=== PATIENT | female | born 1955 | race Hispanic/Latino ===

== ENCOUNTER 2019-07-20 10:45 | Emergency (ER) | payer BC ==
[~2019-07-20] VITALS: Ht 162.6 cm; Wt 77.1 kg
[2019-07-20] MEDS: HYDROCODONE/APAP 5MG-325MG TAB PO ONE (11:22)
--- NOTE | 2019-07-20 11:22 | Diagnostic Imaging Report ---
Exam: Left knee 3 views History: pain Comparison: None. Findings: No fracture or malalignment. Tricompartmental knee degenerative arthrosis. Small joint effusion. Extensor enthesophyte. Impression: No acute osseous abnormality Mild degenerative arthrosis of the knee. Signed by: Dr. Ronnell Haywood M.D. on 07/20/2019 11:20 AM
[2019-07-20 12:08] VITALS: BP 120/73
== END 2019-07-20 12:37 | disposition home or self-care (01) ==
LOC: ER 10:45
DX: M25.562 Pain in left knee (principal); M25.462 Effusion, left knee; X50.1XXA Overexertion from prolonged static or awkward postures, initial encounter; Y93.01 Activity, walking, marching and hiking; E11.9 Type 2 diabetes mellitus without complications; E78.5 Hyperlipidemia, unspecified; F32.9 Major depressive disorder, single episode, unspecified
CPT/HCPCS: 99284

== ENCOUNTER 2019-11-16 11:55 | Emergency (ER) | payer BC ==
[~2019-11-16] VITALS: Ht 162.6 cm; Wt 77.1 kg
--- OUTSIDE RECORDS SUMMARY | 2019-11-16 11:58 | XMS REPORT ---
Author Author [facility] t Organization [facility] Address [address] [place] [address] Phone Unavailable Care Team Providers Care Business Education Professor Name Role Phone ALLYN CARLISLE MD PCP RADHAMES EVANS Unavailable Payers Payer Name Policy Type Policy Number Effective Date Expiration Date [employer] Ppo [id number] 2013 00:00:00 [facility] Problems Condition Name Condition Details Condition Category Status Onset Date Resolution Date Last Treatment Date Treating Clinician Comments Source Bilateral hearing loss Bilateral hearing loss Disease Active 2017-05-29 00:00:00 Flo george Allergies, Adverse Reactions, Alerts Allergy Name Allergy Type Status Severity Reaction(s) Onset Date Inacti ve Date Treating Clinician Comments Source Penicillin Allergy to Substance Active 2019-07-20 00:00:00 [facility] Penicillins Propensity to adverse reactions to drug Active 2017-05-29 00:00:00 Flo mendes Social History Social Habit Start Date Stop Date Quantity Comments Source Sex Assigned At Shadi bocanegra Raghu Alcohol intake 2017-05-29 00:00:00 2017-05-29 00:00:00 Current non-drinker of alcohol (finding) Flo Krishnamurthy Smoking Status Start Date Stop Date Source Never smoker Flo mendes Medications Ordered Medication Name Filled Medication Name Start Date Stop Da te Current Medication? Ordering Clinician Indication Dosage Frequency Signature (SIG) Comments Components Source PARoxetine mesylate (PEXEVA) 40 MG tablet 2017-05-29 14:51:53 Yes 40mg QD Take 40 mg by mouth every morning. Flo Krishnamurthy atorvastatin (LIPITOR) 10 MG tablet 2017-05-29 14:51:53 Yes 10mg QD Take 10 mg by mouth daily. Flo Krishnamurthy metFORMIN (GLUCOPHAGE) 1,000 mg tablet 2017-05-29 14:51:53 Yes 1000mg Q.5D Take 1,000 mg by mouth 2 (two) times a day with meals. Flo Krishnamurthy glimepiride (AMARYL) 2 MG tablet 2017-05-29 14:51:53 Yes 2mg QD Take 2 mg by mouth daily before breakfast. Daniel Krishnamurthy pantoprazole (PROTONIX) 40 MG EC tablet 2017-05-29 14:51:53 Yes 40mg QD Take 40 mg by mouth daily. Flo sneed famotidine (PEPCID) 20 MG tablet 2017-05-29 14:51:53 Yes 20mg Q.5D Take 20 mg by mouth 2 (two) times a day. Daniel Krishnamurthy Procedures This patient has no known procedures. Plan of Care Planned Activity Planned Date Details Comments Source Future Scheduled Test 2020-01-18 00:00:00 INFLUENZA VACCINE [code = INFLUENZA VACCINE] [facility] Scheduled Test 2005 00:00:00 BREAST CANCER SCRE ENING [code = BREAST CANCER SCREENING] [facility] Scheduled Test 2005 00:00:00 COLONOSCOPY SCREEN ING [code = COLONOSCOPY SCREENING] [facility] Scheduled Test 2005 00:00:00 SHINGLES VACCINES (#1) [code = SHINGLES VACCINES (#1)] [facility] Scheduled Test 1976-01-28 00:00:00 Screening for brian gnant neoplasm of cervix (procedure) [code = 296402200] [facility] Encounters Start Date/Time End Date/Time Encounter Type Admission Type [facility] Facility Care Department Encounter ID Source 2019-07-20 10:45:00 2019-07-20 12:37:00 Departed Emergency Room 1 RADHAMES EVANS [facility] [id number] [facility] Results Test Description Test Time Test Comments Results Result Comments Source KNEE LEFT THREE VIEWS 2019-07-20 11:19:00 [facility] [address] [place], [place] [address] Patient Name: FELIX EDWARDS MR #: [id number] : 1955 Age/Sex: 64/F Req #: [id number] Adm Physician: Ordered by: RADHAMES EVANS DO Report #: [id number] Location: ER Room/Bed: Procedure: [id number] DX/KNEE LEFT THREE VIEWS Exam Date: 07/20/19 Exam Time: 1100 REPORT STATUS: Signed Exam: Left knee 3 views History: pain Comparison: None. Findings: No fracture or malalignment. Tricompartmental knee degenerative arthrosis. Small joint effusion. Extensor enthesophyte. Impression: No acute osseous abnormality Mild degenerative arthrosis of the knee. Signed by: Dr. Cathy Fine M.D. on 07/20/2019 11:20 AM Dictated By: CATHY FINE MD 1120 Transcribed By: DANIEL on 07/20/19 1120 COPY TO: RADHAMES EVANS DO
--- OUTSIDE RECORDS SUMMARY | 2019-11-16 11:58 | XMS REPORT | Clinical Summary ---
Author Author [facility] Organization [facility] Address Unknown Phone Unavailable Care Team Providers Care Rehab Office Coordinator Name Role Phone David Pearson MD PCP Allergies Comments Active Allergy Reactions Severity Noted Date Penicillins 05/29/2017 Medications End Date Status Medication Sig Dispensed Refills Start Date Active PARoxetine mesylate Take 40 mg by 0 (PEXEVA) 40 MG tablet mouth every morning. Active atorvastatin (LIPITOR) 10 Take 10 mg by 0 MG tablet mouth daily. Active metFORMIN (GLUCOPHAGE) Take 1,000 mg 0 1,000 mg tablet by mouth 2 (two) times a day with meals. Active glimepiride (AMARYL) 2 MG Take 2 mg by 0 tablet mouth daily before breakfast. Active pantoprazole (PROTONIX) Take 40 mg by 0 40 MG EC tablet mouth daily. Active famotidine (PEPCID) 20 MG Take 20 mg by 0 tablet mouth 2 (two) times a day. Active Problems Problem Noted Date Bilateral hearing loss 05/29/2017 Social History Date Tobacco Use Types Packs/Day Years Used Never Smoker Smokeless Tobacco: Never Used Drinks/Week oz/Week Comments Alcohol Use No Sex Assigned at Date Recorded Not on file Industry Job Start Date Occupation Not on file Not on file Not on file Travel End Travel History Travel Start No recent travel history available. Last Filed Vital Signs Not on file Plan of Treatment Health Maintenance Due Date Last Done Comments CERVICAL CANCER SCREENING 01/28/1976 BREAST CANCER SCREENING 2005 COLONOSCOPY SCREENING 2005 SHINGLES VACCINES (#1) 2005 INFLUENZA VACCINE 01/18/2020 Results Not on fileafter 11/15/2018 Insurance Type Payer Benefit Subscriber ID Effective Phone Address Plan / Dates Group PPO BCBS BCBS xxxxxxxxxxxx 2015-P CHOICE resent PPO/NII VARELA PPO [id number] Advance Directives For more information, please contact: [phone] Patient Health Data Analyst Explanation Type Date Recorded Advance Directives, Living Will and Medical Power of Human Resources Operations Coordinator
[2019-11-16] MEDS ORDERED: SODIUM CHLORIDE 0.9% 1000ML 1,000 ML IV STA (12:20)
[2019-11-16] MEDS ORDERED: MORPHINE SULFATE 2 MG/ML SYR 1ML IV NR (12:30)
[2019-11-16] MEDS ORDERED: ONDANSETRON HCL INJ 2MG/ML 2ML 2 MG/ML VIAL IV NR (12:30)
[2019-11-16 12:38] LABS: BASOPHILS # (AUTO) 0.1 (0.0-0.1); BASOPHILS % 1.4 % (0.0-1.0); EOSINOPHILS # (AUTO) 0.3 (0.0-0.4); EOSINOPHILS % 5.3 % (0.0-6.0); HEMATOCRIT 39.5 % (34.2-44.1); HEMOGLOBIN 13.1 g/dL (12.0-16.0); LYMPHOCYTES # (AUTO) 2.1 (1.0-3.2); LYMPHOCYTES % 36.3 % (18.0-39.1); MEAN CORPUSCULAR HEMOGLOBIN 29.2 pg (28-32); MEAN CORPUSCULAR HGB CONC 33.2 g/dL (31-35); MEAN CORPUSCULAR VOLUME 88.2 fL (81-99); MONOCYTES # (AUTO) 0.4 (0.2-0.8); MONOCYTES % 6.8 % (4.4-11.3); NEUTROPHILS # (AUTO) 2.9 (2.1-6.9); NEUTROPHILS % 49.9 % (38.7-80.0); PLATELET COUNT 273 x10e3/uL (140-360); RED BLOOD COUNT 4.48 x10e6/uL (3.6-5.1); RED CELL DISTRIBUTION WIDTH 12.7 % (11.7-14.4)
--- NOTE | 2019-11-16 12:47 | NUR ---
rec'd pt in rm 4 with c/o r l quad pain
[2019-11-16 12:48] LABS: INR 0.81; PROTHROMBIN TIME 11.7 seconds (11.9-14.5)
[2019-11-16 12:49] LABS: PARTIAL THROMBOPLASTIN TIME 25.4 seconds (23.8-35.5)
[2019-11-16 12:58] LABS: ALANINE AMINOTRANSFERASE 32 IU/L (0-55); ALBUMIN 3.8 g/dL (3.5-5.0); ALBUMIN/GLOBULIN RATIO 1.1 (0.8-2.0); ALKALINE PHOSPHATASE 81 IU/L (40-150); ANION GAP 14.4 mmol/L (8-16); BLOOD UREA NITROGEN 9 mg/dL (7-26); BUN/CREATININE RATIO 12 (6-25); CALCIUM 9.2 mg/dL (8.4-10.2); CARBON DIOXIDE 25 mmol/L (22-29); CHLORIDE 103 mmol/L (98-107); CREATINE KINASE 54 IU/L (29-168); CREATININE, SERUM 0.76 mg/dL (0.57-1.11); EST GLOMERULAR FILTRATION RATE > 60 ML/MIN (60-); GLUCOSE 201 mg/dL (74-118); LIPASE 62 U/L (8-78); POTASSIUM 4.4 mmol/L (3.5-5.1); SODIUM 138 mmol/L (136-145)
[2019-11-16 13:14] LABS: CLARITY,URINE CLEAR (CLEAR); COLOR,URINE YELLOW (YELLOW)
[2019-11-16 13:15] LABS: LEUKOCYTE ESTERASE ,URINE NEGATIVE (NEGATIVE); NITRITE,URINE NEGATIVE (NEGATIVE); PROTEIN,URINE DIPSTICK NEGATIVE (NEGATIVE)
[2019-11-16 13:16] LABS: BILIRUBIN,URINE NEGATIVE (NEGATIVE); KETONES,URINE NEGATIVE (NEGATIVE); URINE UROBILINOGEN 0.2 mg/dL (0.2 - 1)
[2019-11-16 13:28] LABS: BACTERIA,URINE MANY /HPF; EPITHELIAL CELLS,URINE MANY /LPF; RBC,URINE 0-5 /HPF (0-5)
--- NOTE | 2019-11-16 13:44 | Emergency Department Note ---
History of Present Illnes History of Present Illness Chief Complaint: General Medicine Complaints History of Present Illness This is a 64 year old female . Chief Complaint Comment here for numbness in in her back and right sided pelvic area for a wee and states that she feels a lump in her right pelvic area. no other symptoms reported, denies, fever, nausea or vomiting. no diarrhea. Historian: Patient Arrival Mode: Car Onset (how long ago): week(s) (1 wk) Location: right abd pain Severity: mild Onset quality: gradual Duration (how long): week(s) (1 wk) Timing of current episode: constant Progression: unchanged Context: recent illness, recent surgery, recent immobilization, recent travel, trauma/injury, new medications, hx of DVT/PE, non-compliance w/ medications, other Relieving factors: none Exacerbating factors: none Treatments prior to arrival: none (RADHAMES JAMIL NP) Past Medical/Family History Physician Review I have reviewed the patient's past medical and family history. Any updates have been documented here. (RADHAMES JAMIL NP) Past Medical History Recent Fever: No Clinical Suspicion of Infectio: No New/Unexplained Change in Ment: No Past Medical History: Diabetes, Depression, Hyperlipedemia Past Surgical History: (RADHAMES JAMIL NP) Social History Smoking Cessation: Never Smoker Counseling Performed: No Alcohol Use: None Any Illegal Drug Use: No TB Exposure/Symptoms: No Physically hurt or threatened: No (RADHAMES JAMIL NP) Other Last Tetanus: utd Any Pre-Existing Lines (PICC,: No Is patient up to date on immun: Yes Last Flu: UTD Last Pneumovax: UTD (RADHAMES JAMIL NP) Review of Systems Review of Systems Constitutional: no symptoms EENTM: no symptoms Cardiovascular: no symptoms Respiratory: no symptoms Gastrointestinal: abdominal pain (right side abd pain ) Genitourinary: no symptoms Musculoskeletal: no symptoms Neurological: no symptoms Psychological: no symptoms Endocrine: no symptoms Hematological/Lymphatic: no symptoms Review of other systems All other systems reviewed and negative. (RADHAMES JAMIL NP) Physical Exam Related Data Allergies: Coded Allergies: Penicillins (Verified Allergy, Unknown, 07/20/19) Triage Vital Signs Vital Signs Date Time Temp Pulse Resp B/P (MAP) Pulse Ox O2 Delivery O2 Flow Rate FiO2 11/16/19 12:14 98.6 81 16 147/90 97 Vital signs reviewed: Yes (RADHAMES JAMIL IMAGING ACCOUNT MANAGER) Physical Exam CONSTITUTIONAL Constitutional: well-developed, well-nourished HENT HENT: normocephalic, atraumatic, oropharynx clear/moist, nose normal HENT L/R: left ext ear normal, right ext ear normal EYES Eyes: PERRL, conjunctivae normal NECK Neck: ROM normal PULMONARY Pulmonary: effort normal, breath sounds normal CARDIOVASCULAR Cardiovascular: regular rhythm, heart sounds normal, capillary refill normal, normal rate GASTROINTESTINAL Abdominal: soft; nontender (noted ttp on exam r side abd ); bowel sounds normal GENITOURINARY Genitourinary: exam deferred SKIN Skin: warm, dry MUSCULOSKELETAL Musculoskeletal: ROM normal NEUROLOGICAL Neurological: alert, oriented x 3, no gross motor or sensory deficits PSYCHOLOGICAL Psychological: mood/affect normal, judgement normal (RADHAMES JAMIL IMAGING ACCOUNT MANAGER) Results Laboratory Result Diagram: 11/16/19 1228 11/16/19 1228 Laboratory Laboratory Tests Test 11/16/19 12:28 White Blood Count 5.84 x10e3/uL (4.8-10.8) Red Blood Count 4.48 x10e6/uL (3.6-5.1) Hemoglobin 13.1 g/dL (12.0-16.0) Hematocrit 39.5 % (34.2-44.1) Mean Corpuscular Volume 88.2 fL (81-99) Mean Corpuscular Hemoglobin 29.2 pg (28-32) Mean Corpuscular Hemoglobin Concent 33.2 g/dL (31-35) Red Cell Distribution Width 12.7 % (11.7-14.4) Platelet Count 273 x10e3/uL (140-360) Neutrophils (%) (Auto) 49.9 % (38.7-80.0) Lymphocytes (%) (Auto) 36.3 % (18.0-39.1) Monocytes (%) (Auto) 6.8 % (4.4-11.3) Eosinophils (%) (Auto) 5.3 % (0.0-6.0) Basophils (%) (Auto) 1.4 % (0.0-1.0) Neutrophils # (Auto) 2.9 (2.1-6.9) Lymphocytes # (Auto) 2.1 (1.0-3.2) Monocytes # (Auto) 0.4 (0.2-0.8) Eosinophils # (Auto) 0.3 (0.0-0.4) Basophils # (Auto) 0.1 (0.0-0.1) Absolute Immature Granulocyte (auto 0.02 x10e3/uL (0-0.1) Prothrombin Time 11.7 seconds (11.9-14.5) Prothromb Time International Ratio 0.81 Activated Partial Thromboplast Time 25.4 seconds (23.8-35.5) Urine Color Yellow (YELLOW) Urine Clarity Clear (CLEAR) Urine pH 6 (5 - 7) Urine Specific Clark 1.020 (1.010-1.025) Urine Protein Negative (NEGATIVE) Urine Glucose (UA) 2+ (NEGATIVE) Urine Ketones Negative (NEGATIVE) Urine Blood Negative (NEGATIVE) Urine Nitrite Negative (NEGATIVE) Urine Bilirubin Negative (NEGATIVE) Urine Urobilinogen 0.2 mg/dL (0.2 - 1) Urine Leukocyte Esterase Negative (NEGATIVE) Urine RBC 0-5 /HPF (0-5) Urine WBC 6-10 /HPF (0-5) Urine Epithelial Cells Many /LPF (NONE) Urine Bacteria Many /HPF (NONE) Sodium Level 138 mmol/L (136-145) Potassium Level 4.4 mmol/L (3.5-5.1) Chloride Level 103 mmol/L (98-107) Carbon Dioxide Level 25 mmol/L (22-29) Anion Gap 14.4 mmol/L (8-16) Blood Urea Nitrogen 9 mg/dL (7-26) Creatinine 0.76 mg/dL (0.57-1.11) Estimat Glomerular Filtration Rate > 60 ML/MIN (60-) BUN/Creatinine Ratio 12 (6-25) Glucose Level 201 mg/dL (74-118) Calcium Level 9.2 mg/dL (8.4-10.2) Total Bilirubin 0.3 mg/dL (0.2-1.2) Aspartate Amino Transf (AST/SGOT) 24 IU/L (5-34) Alanine Aminotransferase (ALT/SGPT) 32 IU/L (0-55) Alkaline Phosphatase 81 IU/L (40-150) Creatine Kinase 54 IU/L (29-168) Creatine Kinase MB 1.10 ng/mL (0-5.0) Troponin I 0.011 ng/mL (0-0.300) B-Type Natriuretic Peptide 39.2 pg/mL (0-100) Total Protein 7.4 g/dL (6.5-8.1) Albumin 3.8 g/dL (3.5-5.0) Globulin 3.6 g/dL (2.3-3.5) Albumin/Globulin Ratio 1.1 (0.8-2.0) Lipase 62 U/L (8-78) Laboratory Tests Test 11/16/19 12:28 White Blood Count 5.84 x10e3/uL (4.8-10.8) Red Blood Count 4.48 x10e6/uL (3.6-5.1) Hemoglobin 13.1 g/dL (12.0-16.0) Hematocrit 39.5 % (34.2-44.1) Mean Corpuscular Volume 88.2 fL (81-99) Mean Corpuscular Hemoglobin 29.2 pg (28-32) Mean Corpuscular Hemoglobin Concent 33.2 g/dL (31-35) Red Cell Distribution Width 12.7 % (11.7-14.4) Platelet Count 273 x10e3/uL (140-360) Neutrophils (%) (Auto) 49.9 % (38.7-80.0) Lymphocytes (%) (Auto) 36.3 % (18.0-39.1) Monocytes (%) (Auto) 6.8 % (4.4-11.3) Eosinophils (%) (Auto) 5.3 % (0.0-6.0) Basophils (%) (Auto) 1.4 % (0.0-1.0) Neutrophils # (Auto) 2.9 (2.1-6.9) Lymphocytes # (Auto) 2.1 (1.0-3.2) Monocytes # (Auto) 0.4 (0.2-0.8) Eosinophils # (Auto) 0.3 (0.0-0.4) Basophils # (Auto) 0.1 (0.0-0.1) Absolute Immature Granulocyte (auto 0.02 x10e3/uL (0-0.1) Prothrombin Time 11.7 seconds (11.9-14.5) Prothromb Time International Ratio 0.81 Activated Partial Thromboplast Time 25.4 seconds (23.8-35.5) Urine Color Yellow (YELLOW) Urine Clarity Clear (CLEAR) Urine pH 6 (5 - 7) Urine Specific Clark 1.020 (1.010-1.025) Urine Protein Negative (NEGATIVE) Urine Glucose (UA) 2+ (NEGATIVE) Urine Ketones Negative (NEGATIVE) Urine Blood Negative (NEGATIVE) Urine Nitrite Negative (NEGATIVE) Urine Bilirubin Negative (NEGATIVE) Urine Urobilinogen 0.2 mg/dL (0.2 - 1) Urine Leukocyte Esterase Negative (NEGATIVE) Urine RBC 0-5 /HPF (0-5) Urine WBC 6-10 /HPF (0-5) Urine Epithelial Cells Many /LPF (NONE) Urine Bacteria Many /HPF (NONE) Sodium Level 138 mmol/L (136-145) Potassium Level 4.4 mmol/L (3.5-5.1) Chloride Level 103 mmol/L (98-107) Carbon Dioxide Level 25 mmol/L (22-29) Anion Gap 14.4 mmol/L (8-16) Blood Urea Nitrogen 9 mg/dL (7-26) Creatinine 0.76 mg/dL (0.57-1.11) Estimat Glomerular Filtration Rate > 60 ML/MIN (60-) BUN/Creatinine Ratio 12 (6-25) Glucose Level 201 mg/dL (74-118) Calcium Level 9.2 mg/dL (8.4-10.2) Total Bilirubin 0.3 mg/dL (0.2-1.2) Aspartate Amino Transf (AST/SGOT) 24 IU/L (5-34) Alanine Aminotransferase (ALT/SGPT) 32 IU/L (0-55) Alkaline Phosphatase 81 IU/L (40-150) Creatine Kinase 54 IU/L (29-168) Creatine Kinase MB 1.10 ng/mL (0-5.0) Troponin I 0.011 ng/mL (0-0.300) B-Type Natriuretic Peptide 39.2 pg/mL (0-100) Total Protein 7.4 g/dL (6.5-8.1) Albumin 3.8 g/dL (3.5-5.0) Globulin 3.6 g/dL (2.3-3.5) Albumin/Globulin Ratio 1.1 (0.8-2.0) Lipase 62 U/L (8-78) Laboratory Tests Test 11/16/19 12:28 White Blood Count 5.84 x10e3/uL (4.8-10.8) Red Blood Count 4.48 x10e6/uL (3.6-5.1) Hemoglobin 13.1 g/dL (12.0-16.0) Hematocrit 39.5 % (34.2-44.1) Mean Corpuscular Volume 88.2 fL (81-99) Mean Corpuscular Hemoglobin 29.2 pg (28-32) Mean Corpuscular Hemoglobin Concent 33.2 g/dL (31-35) Red Cell Distribution Width 12.7 % (11.7-14.4) Platelet Count 273 x10e3/uL (140-360) Neutrophils (%) (Auto) 49.9 % (38.7-80.0) Lymphocytes (%) (Auto) 36.3 % (18.0-39.1) Monocytes (%) (Auto) 6.8 % (4.4-11.3) Eosinophils (%) (Auto) 5.3 % (0.0-6.0) Basophils (%) (Auto) 1.4 % (0.0-1.0) Neutrophils # (Auto) 2.9 (2.1-6.9) Lymphocytes # (Auto) 2.1 (1.0-3.2) Monocytes # (Auto) 0.4 (0.2-0.8) Eosinophils # (Auto) 0.3 (0.0-0.4) Basophils # (Auto) 0.1 (0.0-0.1) Absolute Immature Granulocyte (auto 0.02 x10e3/uL (0-0.1) Prothrombin Time 11.7 seconds (11.9-14.5) Prothromb Time International Ratio 0.81 Activated Partial Thromboplast Time 25.4 seconds (23.8-35.5) Urine Color Yellow (YELLOW) Urine Clarity Clear (CLEAR) Urine pH 6 (5 - 7) Urine Specific Clark 1.020 (1.010-1.025) Urine Protein Negative (NEGATIVE) Urine Glucose (UA) 2+ (NEGATIVE) Urine Ketones Negative (NEGATIVE) Urine Blood Negative (NEGATIVE) Urine Nitrite Negative (NEGATIVE) Urine Bilirubin Negative (NEGATIVE) Urine Urobilinogen 0.2 mg/dL (0.2 - 1) Urine Leukocyte Esterase Negative (NEGATIVE) Urine RBC 0-5 /HPF (0-5) Urine WBC 6-10 /HPF (0-5) Urine Epithelial Cells Many /LPF (NONE) Urine Bacteria Many /HPF (NONE) Sodium Level 138 mmol/L (136-145) Potassium Level 4.4 mmol/L (3.5-5.1) Chloride Level 103 mmol/L (98-107) Carbon Dioxide Level 25 mmol/L (22-29) Anion Gap 14.4 mmol/L (8-16) Blood Urea Nitrogen 9 mg/dL (7-26) Creatinine 0.76 mg/dL (0.57-1.11) Estimat Glomerular Filtration Rate > 60 ML/MIN (60-) BUN/Creatinine Ratio 12 (6-25) Glucose Level 201 mg/dL (74-118) Calcium Level 9.2 mg/dL (8.4-10.2) Total Bilirubin 0.3 mg/dL (0.2-1.2) Aspartate Amino Transf (AST/SGOT) 24 IU/L (5-34) Alanine Aminotransferase (ALT/SGPT) 32 IU/L (0-55) Alkaline Phosphatase 81 IU/L (40-150) Creatine Kinase 54 IU/L (29-168) Creatine Kinase MB 1.10 ng/mL (0-5.0) Troponin I 0.011 ng/mL (0-0.300) B-Type Natriuretic Peptide 39.2 pg/mL (0-100) Total Protein 7.4 g/dL (6.5-8.1) Albumin 3.8 g/dL (3.5-5.0) Globulin 3.6 g/dL (2.3-3.5) Albumin/Globulin Ratio 1.1 (0.8-2.0) Lipase 62 U/L (8-78) Lab results reviewed: Yes (RADHAMES JAMIL NP) Imaging Impressions CONCLUSION: Normal appendix. Diffuse hepatic steatosis. Distended bladder. Multivessel scattered coronary atherosclerosis. Signed by: Dr. Shen Orozco MD on 11/16/2019 2:21 PM Dictated By: SHEN OROZCO MD 20 Transcribed By: DANIEL on 11/16/191420 (RADHAMES JAMIL NP) Critical Care Time Subsequent provider I assumed direction of critical care for this patient from another provider of my specialty. (RADHAMES JAMIL NP) Assessment & Plan Reassessment Reassessment time: 15:50 Reassessment Chart scribed for Dr Anegl 64y f presented to ed c/o r side abd pain x 1 wk - denies n/v/d dysuria hematuria frequency - Dr Angel in eval pt status lab CT ordered pt medicated /w morphine zofran (RADHAMES JAMIL NP) Assessment & Plan Final Impression: (1) UNSPECIFIED ABDOMINAL PAIN Assessment & Plan Dr Angel in re eval pt status discussed lab ct results plan of care and f/u instructions plan: 1. follow up with your doctor in 1-2 days without fail 2. return to ed as needed 3. tylenol and motrin as needed 4. rx bentyl (RADHAMES JAMIL NP) Last Vital Signs Date Time Temp Pulse Resp B/P (MAP) Pulse Ox O2 Delivery O2 Flow Rate FiO2 11/16/19 12:47 98.8 81 16 143/81 99 (RADHAMES JAMIL NP) Medications in the ED Morphine Sulfate 2 mg ONCE IV ; Start 11/16/19 at 12:30; Stop 11/16/19 at 13:59 Ondansetron HCl 4 mg ONCE IV ; Start 11/16/19 at 12:30; Stop 11/16/19 at 13:59 Sodium Chloride 1,000 ml @ 0 mls/hr Q0M STAT IV Last administered on 11/16/19at 13:06; Admin Dose 999 MLS/HR; Start 11/16/19 at 12:20; Stop 11/16/19 at 12:23; Status DC (RADHAMES JAMIL NP) Physician Attestation Provider Attestation The patient's history, exam findings, diagnostics, and a summary of any interventions or procedures was reviewed in detail with our ALVARADO. I personally interviewed and examined the patient, and I have reviewed and agree with the HPI andexam. My personal exam shows mild RUQ/RLQ abd tenderness without R/G, NABS, no rash noted & skin not sensitive to touch. I confirm the diagnosis as documented by the ALVARADO. I have reviewed and agree with the care plan articulated in the disposition section. (YASMIN ANGEL MD) RADHAMES JAMIL NP November 16, 2019 13:43 YASMIN ANGEL MD November 16, 2019 14:48
--- NOTE | 2019-11-16 14:24 | Diagnostic Imaging Report ---
EXAM: CT Abdomen and Pelvis WITH contrast INDICATION: Right-sided abdominal pain. COMPARISON: None. TECHNIQUE: Abdomen and pelvis were scanned utilizing a multidetector helical scanner from the lung base to the pubic symphysis after administration of IV contrast. Coronal and sagittal reformations were obtained. Routine protocol was performed. Scan was performed during portal venous phase. IV CONTRAST: 100 cc of Isovue-370 ORAL CONTRAST: None COMPLICATIONS: None RADIATION DOSE: Total DLP: 428.9 mGy*cm Estimated effective dose: (DLP x 0.015 x size factor) mSv CTDIvol has been reviewed. It is below the limits set by the Radiation Protocol Committee (RPC). FINDINGS: LINES and TUBES: None. LOWER THORAX: Multivessel scattered coronary atherosclerosis. HEPATOBILIARY: Diffuse hepatic steatosis. No evidence of focal lesion. No biliary ductal dilation. GALLBLADDER: No radio-opaque stones or sludge. No wall thickening. SPLEEN: No splenomegaly. PANCREAS: No ductal dilatation. Apparent fat-containing lesion in the pancreatic body corresponds to peripancreatic fat seen on coronal series 301, image 52. ADRENALS: No adrenal nodules KIDNEYS/URETERS: Bilateral renal cortical scarring. No evidence of hydronephrosis, solid mass, or stone. GI TRACT: No evidence of wall thickening or distension. Appendix is normal. PELVIC ORGANS/BLADDER: Distended bladder. Uterus appears unremarkable. LYMPH NODES: No lymphadenopathy. VESSELS: There is mild atherosclerotic disease in the aorta and major arterial branches. PERITONEUM / RETROPERITONEUM: No free air or fluid. BONES AND SOFT TISSUES: Unremarkable. CONCLUSION: Normal appendix. Diffuse hepatic steatosis. Distended bladder. Multivessel scattered coronary atherosclerosis. Signed by: Dr. Lamont Jenkins MD on 11/16/2019 2:21 PM
[2019-11-16] MEDS ORDERED: IOPAMIDOL 370 MG/ML 200 ML INFUS..BTL INJ ONE (14:37)
[2019-11-16] MEDS ORDERED: SODIUM CHLORIDE 0.9% 50ML 50 ML ONE (14:37)
== END 2019-11-16 15:41 | disposition home or self-care (01) ==
LOC: ER 11:55
DX: R20.0 Anesthesia of skin (principal); R10.32 Left lower quadrant pain; E11.65 Type 2 diabetes mellitus with hyperglycemia; E78.5 Hyperlipidemia, unspecified; F32.9 Major depressive disorder, single episode, unspecified
CPT/HCPCS: 36415; 74177; 80053; 81001; 82550; 82553; 83690; 83880; 84484; 85025; 85610; 85730; 87086; 99284; J2405; J7030; Q9967; J2270

== ENCOUNTER → 2021-09-06 | Outpatient (CLI) | payer MEDICARE | LOC: MAMMO 14:39 | PROVIDERS: ATTEND Family Medicine | DX: Z12.31 Encounter for screening mammogram for malignant neoplasm of breast (principal) | CPT/HCPCS: 77067 ==

== ENCOUNTER → 2021-11-01 | Outpatient (CLI) | payer MEDICARE | LOC: RAD 12:54 | PROVIDERS: ATTEND Family Medicine | DX: J40 Bronchitis, not specified as acute or chronic (principal) | CPT/HCPCS: 71046 ==